=== PATIENT | male | born 1965 | race Two or more races ===

== ENCOUNTER 2017-05-11 00:45 | Emergency (ER) | payer MEDICAID ==
[2017-05-11 01:09] LABS: % LYMPHOCYTES 20.6 % (20.0-50.0); % MONOCYTES 7.5 % (2.0-10.0); % NEUTROPHILS 67.9 % (40.0-80.0); EOSINOPHILE ABSOLUTE 0.4 Th/cmm (0.1-0.4); HEMATOCRIT 42.9 % (41.0-60); HEMOGLOBIN 14.5 gm/dL (12-16); MEAN CELL VOLUME 83.9 fl (80-99); MEAN CORPUSCULAR HEMOGLOBIN 28.3 pg (26.0-30.0); MEAN CORPUSCULAR HGB CONC 33.7 pg (28.0-36.0); MONOCYTE ABSOLUTE 0.8 Th/cmm (0.3-1.0); PLATELET COUNT 233 Th/cmm (150-400); RED BLOOD COUNT 5.11 Mil/cmm (4.30-5.70); WHITE BLOOD COUNT 10.1 Th/cmm (4.8-10.8)
[2017-05-11 01:12] LABS: ANION GAP 10.7 (7.0-16.0); BUN - UREA NITROGEN 13 mg/dL (7-25); CARBON DIOXIDE 23.8 mEq/L (21.0-31.0); CHLORIDE 103 mEq/L (98-107); GLUCOSE 91 mg/dL; POTASSIUM SERUM 3.5 mEq/L (3.5-5.1); SODIUM SERUM 134 mEq/L (136-145)
[2017-05-11] MEDS ORDERED: Acetaminophen 500 MG TAB PO ONE (01:25)
[2017-05-11 01:29] LABS: GFR AFRICAN-AMERICAN > 60.0 ml/min (>90); GFR NON AFRICAN-AMERICAN > 60.0 ml/min
[2017-05-11 01:32] LABS: RED CELL DISTRIBUTION WIDTH 13.3 % (11.5-20.0)
[2017-05-11] MEDS ORDERED: Acetaminophen 500 MG TAB ONE (01:40)
[2017-05-11] MEDS ORDERED: Thiamine 100 mg/mL 2mL Vial IM STA (01:56)
[2017-05-11] MEDS ORDERED: Thiamine 100 mg/mL 2mL Vial ONE (01:58)
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
== END 2017-05-11 05:38 | disposition home or self-care (01) ==
LOC: ER 00:45
DX: M25.561 Pain in right knee (principal)
CPT/HCPCS: 99284; 96372 ×2; 36415; 85025; 80320; 80048; J1885; J3411; Z7502; Z7610